=== PATIENT | male | born 1955 | race Caucasian/White ===

== ENCOUNTER 2017-01-04 10:06 | Day surgery (SDC) | payer OTHER ==
[~2017-01-04] VITALS: Ht 188 cm; Wt 76.6 kg
[2017-01-04 10:50] VITALS: Ht 188 cm; Wt 76.6 kg
[2017-01-04] MEDS ORDERED: [UNRECOGNIZED DRUG - OTHER] (10:58)
[2017-01-04 11:20] VITALS: BP 145/70; PULSE 56; RESP 20
[2017-01-04] MEDS ORDERED: PROPOFOL 40 ML ONE (11:22)
[2017-01-04] MEDS ORDERED: PROPOFOL 20 ML ONE (12:03)
[2017-01-04 12:13] VITALS: BP 109/58; PULSE 52; RESP 12
[2017-01-04 12:28] VITALS: BP 128/81; PULSE 62; RESP 12
--- NOTE | 2017-02-05 14:48 | GILP ---
DATE OF PROCEDURE: 01/18/2017 PREOPERATIVE DIAGNOSIS: Screening colonoscopy. POSTOPERATIVE DIAGNOSES: 1. Colonoscopy all the way to the cecum. 2. Poor prep making the exam suboptimal. 3. Internal hemorrhoids. 4. No gross neoplasm was identified. PROCEDURE PERFORMED: Colonoscopy. SURGEON: Jacqueline Avila MD. INDICATION FOR PROCEDURE: Mr. Mahamed Krishna is a 61-year-old male patient who was scheduled for screening colonoscopy. The procedure and possible complications were well explained to the patient. He understood and consented to the procedure. DESCRIPTION OF PROCEDURE: Under the influence of anesthesia the colonoscope was carefully introduced in the rectum. Under direct vision it was advanced all the way to the cecum. Findings, the patient had poor prep making the exam suboptimal. He was noted to have internal hemorrhoids. No gross neoplasm was identified. He tolerated the procedure very well and there was no complications from the procedure. At the end of procedure he was awake with stable vital signs and he was discharged home in the care of his family. IMPRESSION: 1. Colonoscopy all the way to the cecum. 2. Poor prep making the exam suboptimal. 3. Internal hemorrhoids. 4. No gross neoplasm was identified. PLAN: Because of poor prep and the suboptimal nature of the examination the patient will need repeat colonoscopy with a better preparation in 1 to 2 years. Dictated By: MD LAURA Thomas/charli/estiven /Document#: [id number] CC: Jacqueline Avila MD;*[facility]*
== END 2017-01-04 14:03 | disposition home or self-care (01) ==
LOC: GIL 10:06
PROVIDERS: ATTEND Internal Medicine Gastroenterology
DX: Z12.11 Encounter for screening for malignant neoplasm of colon (principal); K64.8 Other hemorrhoids; J44.9 Chronic obstructive pulmonary disease, unspecified; M19.90 Unspecified osteoarthritis, unspecified site
CPT/HCPCS: 45378; Z7610